=== PATIENT | female | born 2005 | race African-American/Black ===

== ENCOUNTER 2024-12-09 17:13 | Emergency (ER) | payer BC ==
[~2024-12-09] VITALS: Ht 162.6 cm; Wt 49.9 kg
[2024-12-09 17:51] LABS: APPEARANCE,URINE CLOUDY (CLEAR); GLUCOSE, URINE (UA) NEGATIVE (NEGATIVE); LEUKOCYTE ESTERASE ,URINE 250 Leu/uL (NEGATIVE); NITRATE,URINE NEGATIVE (NEGATIVE); OCCULT BLOOD,URINE NEGATIVE (NEGATIVE)
[2024-12-09 17:52] LABS: ADD UA MICROSCOPIC YES
[2024-12-09 17:56] LABS: SQUAMOUS EPITHELIAL CELL,UR FEW /HPF (0-2); YEAST,URINE BUDDING RARE /HPF (None Seen)
--- NOTE | 2024-12-09 17:56 | ERN ---
General Chief Complaint: Anemia Stated Complaint: STATES NEEDS IRON INFUSION Time Seen by MD: 17:20 History of Present Illness Initial Comments Patient is 19-year-old female who presented to ED with chief complaints of fatigue, weakness. She says that she is having this problem for a long time. She says that her PCP has sent her to ED to get IV iron. She denies heavy menstrual bleed, chest pain, palpitations, nausea, vomiting. Allergies: Coded Allergies: No Known Allergies (Unverified Allergy, Unknown, 12/09/24) Past Medical History Past Medical History: Anemia Past Surgical History: None Female( History) LMP: Nov 19, 2024 Constitutional: (+) weakness; (-) chills, (-) diaphoresis, (-) fever, (-) malaise, (-) other documentation Respiratory: (-) cough, (-) orthopnea, (-) short of breath, (-) stridor, (-) wheezing, (-) other documentation Cardiovascular: (-) chest pain, (-) edema, (-) palpitations, (-) syncope, (-) dyspnea on exertion, (-) other documentation Gastrointestinal/Abdominal: (-) nausea, (-) vomiting, (-) diarrhea, (-) abdominal pain, (-) abdominal distention, (-) constipation, (-) rectal bleeding, (-) dark stool/melena, (-) other documentation Review of Systems: was completed Nurses Notes Reviewed: Yes Physical Exam General Appearance: (+) no apparent distress; (-) apparent distress, (-) mild distress, (-) moderate distress, (-) severe distress, (-) thin, (-) obese, (-) combative, (-) cachetic, (-) anxious, (-) other documentation Orientation: (+) alert, (+) oriented x 3; (-) disoriented, (-) other documentation Head/Face Trauma: No Respiratory: (+) chest non-tender, (+) lungs clear, (+) well ventilated; (-) decreased breath sounds, (-) retractions, (-) abnormal breath sound, (-) crackles, (-) plerual rub, (-) rales, (-) rhonchi, (-) stridor, (-) wheezing, (- ) other documentation Heart: (+) regular, (+) no gallop, (+) tachycardia; (-) murmur, (-) irregular, (-) bradycardia, (-) systolic murmur, (-) diastolic murmur, (-) extra beats, (-) friction rub, (-) gallop/S3, (-) gallop/S4, (-) other documentation Results Laboratory and Microbiology Lab and Micro Result Laboratory Tests Test 12/09/24 17:39 12/09/24 18:00 Urine Color LIGHT-YELLOW (YELLOW) Urine Appearance CLOUDY (CLEAR) H Urine pH 6.0 (5.0-8.0) Urine Specific [place] 1.015 (1.001-1.031) Urine Protein NEGATIVE mg/dL (NEGATIVE) Urine Glucose (UA) NEGATIVE mg/dL (NEGATIVE) Urine Ketones NEGATIVE mg/dL (NEGATIVE) Urine Occult Blood NEGATIVE (NEGATIVE) Urine Nitrate NEGATIVE (NEGATIVE) Urine Bilirubin NEGATIVE mg/dL (NEGATIVE) Urine Urobilinogen 0.2 mg/dL (0.2-1.0) Urine Leukocyte Esterase 250 Leonila/uL (NEGATIVE) H Urine RBC 6-10 /HPF (0-1) H Urine WBC 6-10 /HPF (0-1) H Urine Squamous Epithelial Cells FEW /HPF (0-2) Urine Bacteria RARE /HPF (None Seen) Urine Yeast RARE /HPF (None Seen) Urine HCG, Qualitative NEGATIVE (NEGATIVE) White Blood Count 6.5 K/uL (4.8-10.8) Red Blood Count 4.52 MIL/uL (4.00-5.50) Hemoglobin 7.0 g/dL (12.0-16.0) *L Hematocrit 27.7 % (36-48) L Mean Corpuscular Volume 61.3 fL (80-100) L Mean Corpuscular Hemoglobin 15.5 pg (27.0-33.0) L Mean Corpuscular Hemoglobin Concent 25.3 g/dL (32.0-36.0) L Red Cell Distribution Width 18.8 % (11.0-15.5) H Platelet Count 357 K/uL (130-400) Mean Platelet Volume 9.4 fL (7.5-10.5) Immature Granulocyte % (Auto) 0.2 % (0-1) Neutrophils (%) (Auto) 48.3 % (40.0-77.0) Lymphocytes (%) (Auto) 39.3 % (21.0-51.0) Monocytes (%) (Auto) 8.5 % (3.0-13.0) Eosinophils (%) (Auto) 3.1 % (0.0-8.0) Basophils (%) (Auto) 0.6 % (0.0-5.0) Neutrophils # (Auto) 3.1 K/uL (1.8-7.7) Lymphocytes # (Auto) 2.5 K/uL (1.0-4.8) Monocytes # (Auto) 0.6 K/uL (0.1-1.0) Eosinophils # (Auto) 0.20 K/uL (0.00-0.70) Basophils # (Auto) 0.04 K/uL (0.00-0.20) Absolute Immature Granulocyte (auto 0.01 K/uL (0-1) Nucleated Red Blood Cells 0.0 % (0.0-0.19) Red Blood Cell Morphology See comments MDM CC: anemia historian: patient comorbidities: anemia VSS anemic on labs, hg 7.0. She has LOYDA I recommended blood transfusion, but she's a Islam and declines. She went to PCP and was recommended IV iron. I ordered Venofer. While pending the infusion, the patient was informed that this hospital is out of network. Patient is going to leave now and head over to [facility] for an infusion. ED Course Orders Procedure Category Date Status Time Urinalysis Profile LAB 12/09/24 Complete 17:29 ,Urine Test LAB 12/09/24 Complete 17:29 Cbc With Differential LAB 12/09/24 Complete 17:40 Iron Sucrose Complex PHA 12/09/24 Complete (Venofer) 18:00 Culture Urine RUIZ 12/09/24 In Process 17:53 Current Medications Medications (Trade) Dose Ordered Sig/Ping Route PRN Reason Start Time Stop Time Status Last Admin Dose Admin Iron Sucrose (VenoFER) 200 mg ONCE ONCE IV 12/09/24 18:00 12/09/24 18:06 DC Vital Signs Date Time Temp Pulse Resp B/P (MAP) Pulse Ox O2 Delivery O2 Flow Rate FiO2 12/09/24 19:21 98.1 102 16 112/72 98 Room Air* 0 21 12/09/24 17:15 98.1 104 16 111/74 100 Room Air 0 DX & DISP Disposition: Discharge Departure Impression: Primary Impression: Microcytic anemia Condition: Stable Additional Instructions: Your hemoglobin is 7.0. You likely need a blood transfusion or a Venofer infection/infusion. Please follow up with your primary doctor. Return to the ED as needed. ANTONIO SARGENT MD Dec 09, 2024 17:56 LUCY BACA DO Dec 09, 2024 18:58
[2024-12-09 17:59] LABS: HCG,QUALITATIVE URINE NEGATIVE (NEGATIVE)
[2024-12-09 18:08] LABS: IMMATURE GRANULOCYTE ABSOLUTE 0.01 K/uL (0-1); NUCLEATED RED BLOOD CELLS 0.0 % (0.0-0.19); PLATELET COUNT (AUTO) 357 K/uL (130-400); RED BLOOD CELL COUNT(AUTO) 4.52 MIL/uL (4.00-5.50); RED CELL DISTRIBUTION WIDTH 18.8 % (11.0-15.5); WHITE BLOOD COUNT (AUTO) 6.5 K/uL (4.8-10.8)
[2024-12-09 19:21] VITALS: BP 112/72; PULSE 102; RESP 16; TEMP 98; O2SAT 98
== END 2024-12-09 19:30 | disposition home or self-care (01) ==
LOC: EDH 17:13
DX: D50.9 Iron deficiency anemia, unspecified (principal)
CPT/HCPCS: 36415; 81001; 81025; 85025; 87086; 99283; J1756